=== PATIENT | female | born 1930 | race Caucasian/White ===

== ENCOUNTER 2020-12-23 17:55 | Emergency (ER) | payer OTHER ==
[~2020-12-23] VITALS: Ht 152.4 cm; Wt 52.2 kg
--- NOTE | 2020-12-23 18:06 | NUR ---
PT IS IN ROOM #1A. DR ASH EVALUATED THE PT.
[2020-12-23] MEDS ORDERED: ACETAMINOPHEN 325 MG TABLET PO ONE (18:30)
[2020-12-23] MEDS ORDERED: ACETAMINOPHEN 325 MG TABLET ONE (18:38)
[2020-12-23] MEDS ORDERED: MONT10TA22 PO (19:15)
[2020-12-23] MEDS ORDERED: LORA10TA7 PO (19:15)
[2020-12-23] MEDS ORDERED: CHOL10005 PO (19:15)
[2020-12-23] MEDS ORDERED: FLUT1DIS29 INH (19:15)
[2020-12-23] MEDS ORDERED: CALC430T PO (19:15)
[2020-12-23] MEDS ORDERED: CITA20TA16 PO (19:15)
[2020-12-23] MEDS ORDERED: BUSP5TAB3 PO (19:15)
[2020-12-23] MEDS ORDERED: ACET-2154 PO (19:28)
--- NOTE | 2020-12-23 19:38 | NUR ---
Called [facility] for transportation of patient to home. Dispatcher Иван states a BLS unit will be arriving in 30-40 minutes to forklift picker the patient.
--- NOTE | 2020-12-23 19:50 | NUR ---
[facility] BLS unit 220 arrived to grape picker the patient. Report given, discharge paperwork given, patient soon to be transported.
[2020-12-23 19:52] VITALS: BP 132/56
--- NOTE | 2020-12-23 19:58 | NUR ---
Patient discharged to home in stable condition via [facility] BLS unit 220. Written and verbal after care instructions given to ambulance crew. Ambulance crew verbalizes understanding of instructions. Stressed follow up or return to ER for worsening s/s. Patient transported via gurney to home, V/S stable, received paper Rx, received CT scan results, and left with all personal belongings to home.
== END 2020-12-23 20:01 ==
LOC: ER 18:01
DX: S00.03XA Contusion of scalp, initial encounter (principal); W01.0XXA Fall on same level from slipping, tripping and stumbling without subsequent striking against object, initial encounter; Y92.099 Unspecified place in other non-institutional residence as the place of occurrence of the external cause; I10 Essential (primary) hypertension; F03.90 Unspecified dementia, unspecified severity, without behavioral disturbance, psychotic disturbance, mood disturbance, and anxiety; Z82.49 Family history of ischemic heart disease and other diseases of the circulatory system; M50.30 Other cervical disc degeneration, unspecified cervical region
CPT/HCPCS: 70450; 72125; A4663

== ENCOUNTER 2021-01-03 11:38 | Emergency (ER) | payer OTHER ==
[~2021-01-03] VITALS: Ht 152.4 cm; Wt 68.0 kg
[~2021-01-03 11:38] MED LIST: ACET-2154 PO; BUSP5TAB3 PO; CALC430T PO; CHOL10005 PO; CITA20TA16 PO; FLUT1DIS29 INH; LORA10TA7 PO; MONT10TA22 PO
--- NOTE | 2021-01-03 11:49 | NUR ---
PT IS IN ROOM #2A. DR ORGERS EVALUATED THE PT.
[2021-01-03 12:35] LABS: HEMATOCRIT 41.1 % (31.2-41.9); MEAN CORPUSCULAR HEMOGLOBIN 31.3 uug (24.7-32.8); MEAN CORPUSCULAR VOLUME 94.1 fL (75.5-95.3); PLATELET COUNT (AUTO) 199 K/uL (179-408)
[2021-01-03 12:59] LABS: MAGNESIUM 2.1 mg/dL (1.8-2.4); PHOSPHOROUS 3.1 mg/dL (2.5-4.9)
[2021-01-03 13:01] LABS: THYROID STIMULATING HORMONE 2.778 mIU/mL (0.358-3.740)
[2021-01-03 13:07] LABS: *BILIRUBIN,URIN NEGATIVE (NEGATIVE); *BLOOD, URINE NEGATIVE (NEGATIVE); *CLARITY,URINE CLEAR (CLEAR); *COLOR,URINE YELLOW (YELLOW); *KETONES,URINE NEGATIVE (NEGATIVE); *UROBILINOGEN,URINE 0.2 E.U./dl (NORMAL); LEUKOCYTE ESTERASE ,URINE TRACE (NEGATIVE); NITRITE, URINE NEGATIVE (NEGATIVE); PH,URINE 5.5 (5.0-8.0); UGLUCOSE NEGATIVE (NEGATIVE)
[2021-01-03 13:09] LABS: CREATININE 0.8 mg/dL (0.6-1.3); POTASSIUM 3.9 mmol/L (3.5-5.1)
[2021-01-03 13:15] LABS: BILIRUBIN,DIRECT 0.1 mg/dL (0.0-0.2); BILIRUBIN,TOTAL 0.3 mg/dL (0.2-1.0)
[2021-01-03] MEDS ORDERED: CEFP200T14 PO (15:11)
[2021-01-03 15:29] LABS: BACTERIA,URINE NONE SEEN /HPF (NONE SEEN); RBC,URINE 0-3 /HPF (0-3); SQUAMOUS EPITHELIAL CELL,UR FEW /HPF (NONE SEEN); URINE AMORPHOUS URATE FEW /HPF
[2021-01-03 15:40] VITALS: BP 128/69
--- NOTE | 2021-01-03 15:40 | NUR ---
PT WAS D/C'd TO HOME. D/C INSTRUCTIONS GIVEN TO THE PT BY DR ROGERS.
== END 2021-01-03 15:41 ==
LOC: ER 11:38
DX: S09.90XA Unspecified injury of head, initial encounter (principal); W19.XXXA Unspecified fall, initial encounter; Y92.099 Unspecified place in other non-institutional residence as the place of occurrence of the external cause; N39.0 Urinary tract infection, site not specified; R53.1 Weakness; F03.90 Unspecified dementia, unspecified severity, without behavioral disturbance, psychotic disturbance, mood disturbance, and anxiety; J45.909 Unspecified asthma, uncomplicated; E78.5 Hyperlipidemia, unspecified; Z79.899 Other long term (current) drug therapy; Z88.8 Allergy status to other drugs, medicaments and biological substances; I10 Essential (primary) hypertension; M25.522 Pain in left elbow; Z20.822 Contact with and (suspected) exposure to COVID-19
CPT/HCPCS: 36415; 70030-TC; 70450; 71045; 72125; 73080; 83735; 84100; 84443; 85025; 87077; 87086; 93005; A4663; C1758

== ENCOUNTER 2021-02-23 16:05 | Inpatient (IN) | payer OTHER ==
[~2021-02-23] VITALS: Ht 157.5 cm; Wt 60.9 kg
[~2021-02-23 16:05] MED LIST changes: +CEFP200T14 PO
[2021-02-23] MEDS ORDERED: LIDOCAINE 1%-EPI 1:100,000 20 ML VIAL IJ ONE (17:15)
[2021-02-23] MEDS ORDERED: TDAP DIPH,PERTUSS,TET VAC/PF 0.5 ML DISP.SYRIN IM ONE ×2 (17:15→19:29)
[2021-02-23] MEDS ORDERED: NEOMY/BACITRA/POLYMYXIN B OINT UD PACKET TP ONE ×2 (17:53→18:00)
[2021-02-23 18:23] LABS: HEMATOCRIT 41.8 % (31.2-41.9); MEAN CORPUSCULAR VOLUME 90.3 fL (75.5-95.3); PLATELET COUNT (AUTO) 205 K/uL (179-408)
[2021-02-23 18:26] LABS: CARBON DIOXIDE 27 mmol/L (21-32); CHLORIDE 105 mmol/L (98-107); CREATININE 0.9 mg/dL (0.6-1.3); GLUCOSE 104 mg/dL (74-106); POTASSIUM 4.1 mmol/L (3.5-5.1); UREA NITROGEN, BLOOD 27 mg/dL (7-18)
[2021-02-23 18:30] LABS: ETHANOL < 3 MG/DL (0-0)
[2021-02-23 18:32] LABS: ALANINE AMINOTRANSFERASE 17 U/L (14-59); ALKALINE PHOSPHATASE 70 U/L (50-136); ASPARTATE AMINOTRANSFERASE 10 U/L (15-37); BILIRUBIN,DIRECT 0.1 mg/dL (0.0-0.2); BILIRUBIN,TOTAL 0.2 mg/dL (0.2-1.0); TOTAL PROTEIN, SERUM 7.5 g/dL (6.4-8.2)
[2021-02-23 18:33] LABS: ACETAMINOPHEN < 2.0 ug/mL (10-30)
[2021-02-23 18:39] LABS: THYROID STIMULATING HORMONE 3.213 mIU/mL (0.358-3.740)
[2021-02-23 20:16] LABS: *BILIRUBIN,URIN NEGATIVE (NEGATIVE); *CLARITY,URINE CLEAR (CLEAR); *COLOR,URINE LIGHT YELLOW (YELLOW); *KETONES,URINE NEGATIVE (NEGATIVE); *UROBILINOGEN,URINE 0.2 E.U./dl (NORMAL); LEUKOCYTE ESTERASE ,URINE NEGATIVE (NEGATIVE); NITRITE, URINE NEGATIVE (NEGATIVE); UGLUCOSE NEGATIVE (NEGATIVE)
[2021-02-23 20:31] LABS: *BLOOD, URINE TRACE INTACT (NEGATIVE); RBC,URINE 0-3 /HPF (0-3); WBC,URINE 0-3 /HPF (0-3)
[2021-02-23 20:32] LABS: BACTERIA,URINE NONE SEEN /HPF (NONE SEEN)
[2021-02-23] MEDS ORDERED: ACETAMINOPHEN 325 MG TABLET PO PRN (21:15)
[2021-02-23] MEDS ORDERED: ONDANSETRON 4 MG/2 ML VIAL IV PRN (21:15)
[2021-02-23] MEDS ORDERED: Z GUARD REMEDY PASTE 57 GM TUBE TOP PRN (21:15)
[2021-02-23 23:08] VITALS: BP 122/60
[2021-02-24 04:42] VITALS: BP 116/46
[2021-02-24 07:10] LABS: HEMATOCRIT 38.8 % (31.2-41.9); PLATELET COUNT (AUTO) 188 K/uL (179-408)
[2021-02-24 08:13] LABS: CREATININE 0.9 mg/dL (0.6-1.3); MAGNESIUM 2.1 mg/dL (1.8-2.4); PHOSPHOROUS 3.5 mg/dL (2.5-4.9); POTASSIUM 3.8 mmol/L (3.5-5.1)
[2021-02-24 11:25] VITALS: BP 106/42
[2021-02-24 15:42] VITALS: BP 121/52
[2021-02-24] MEDS ORDERED: FLUTICASONE/SALMETEROL 500/50 EACH DISK.W.DEV INH SCH (17:00)
[2021-02-24 20:00] VITALS: BP 106/45
[2021-02-24] MEDS: CITALOPRAM 20 MG TABLET PO SCH (20:45)
[2021-02-24] MEDS: OMEGA-3 FATTY ACIDS/FISH OIL CAPSULE PO SCH (20:45)
[2021-02-24] MEDS: busPIRone 5 MG TABLET PO SCH (20:45)
[2021-02-25] VITALS: BP 104/42
[2021-02-25 04:00] VITALS: BP 108/45
[2021-02-25] MEDS: CHOLECALCIFEROL 1,000 UNIT TABLET PO SCH (08:47)
[2021-02-25] MEDS: LORATADINE 10 MG TABLET PO SCH (08:48)
[2021-02-25] MEDS: OMEGA-3 FATTY ACIDS/FISH OIL CAPSULE PO SCH ×2 (08:48→20:02)
[2021-02-25] MEDS: CALCIUM CARBONATE 500 MG TAB.CHEW PO SCH (08:48)
[2021-02-25] MEDS: FLUTICASONE/VILANTEROL 1 EACH BLST.W.DEV INH SCH (08:53)
[2021-02-25] MEDS ORDERED: CALCIUM CARBONATE 500 MG PO SCH (09:00)
[2021-02-25] MEDS ORDERED: Medication Not On Formulary EA (Cholecalciferol (Vitamin D3) (Vitamin D3) 1 CAP) PO SCH (09:00)
[2021-02-25 11:41] VITALS: BP 100/41
[2021-02-25 15:47] VITALS: BP 109/41
[2021-02-25] MEDS ORDERED: MONTELUKAST SODIUM 10 MG TABLET PO SCH (18:00)
[2021-02-25 20:00] VITALS: BP 117/63
[2021-02-25] MEDS: busPIRone 5 MG TABLET PO SCH (20:02)
[2021-02-25] MEDS: CITALOPRAM 20 MG TABLET PO SCH (20:02)
[2021-02-26 04:00] VITALS: BP 108/50
[2021-02-26] MEDS: LORATADINE 10 MG TABLET PO SCH (08:29)
[2021-02-26] MEDS: FLUTICASONE/VILANTEROL 1 EACH BLST.W.DEV INH SCH (08:29)
[2021-02-26] MEDS: CALCIUM CARBONATE 500 MG TAB.CHEW PO SCH (08:29)
[2021-02-26] MEDS: OMEGA-3 FATTY ACIDS/FISH OIL CAPSULE PO SCH (08:29)
[2021-02-26] MEDS: CHOLECALCIFEROL 1,000 UNIT TABLET PO SCH (08:29)
[2021-02-26 12:00] VITALS: BP 98/37
== END 2021-02-26 14:57 | DRG 605 ==
LOC: ER 16:10 → TELE3 22:30 → MEDSURG3 02-25 09:02
PROVIDERS: ADMIT Internal Medicine; ATTEND Internal Medicine
PROC: 0HQ1XZZ Repair Face Skin, External Approach (ICD-10-PCS; principal; 2021-02-23)
DX: S01.81XA Laceration without foreign body of other part of head, initial encounter (principal); E86.0 Dehydration; W18.30XA Fall on same level, unspecified, initial encounter; E78.5 Hyperlipidemia, unspecified; F03.90 Unspecified dementia, unspecified severity, without behavioral disturbance, psychotic disturbance, mood disturbance, and anxiety; I10 Essential (primary) hypertension; J45.909 Unspecified asthma, uncomplicated; Z20.822 Contact with and (suspected) exposure to COVID-19; M50.30 Other cervical disc degeneration, unspecified cervical region; Z91.81 History of falling; R73.03 Prediabetes; Y92.89 Other specified places as the place of occurrence of the external cause; Z88.8 Allergy status to other drugs, medicaments and biological substances
CPT/HCPCS: 36415; 70030-TC; 70450; 71045; 72125; 83605; 83735; 84100; 84443; 85025; 85730; 87040; 87086; 90715; 93005; 93307; 93880; 97161; A4663; G0378; G0480

== ENCOUNTER 2021-03-22 19:43 | Emergency (ER) | payer OTHER ==
[~2021-03-22] VITALS: Ht 157.5 cm; Wt 60.8 kg
[~2021-03-22 19:43] MED LIST changes: -CEFP200T14 PO
[2021-03-22] MEDS ORDERED: LIDOCAINE 1%-EPI 1:100,000 20 ML VIAL IJ ONE (20:00)
--- NOTE | 2021-03-22 20:16 | NUR ---
Pt to CT
--- NOTE | 2021-03-22 22:46 | NUR ---
called [facility] for transportation, 2 hour eta
--- NOTE | 2021-03-23 01:36 | NUR ---
[id number] here, transported pt to [facility] in stable condition. Discharge backwork handed to complex commercial litigation paralegal.
[2021-03-23 01:38] VITALS: BP 119/77
== END 2021-03-23 01:39 ==
LOC: ER 19:45
DX: S01.81XA Laceration without foreign body of other part of head, initial encounter (principal); W18.30XA Fall on same level, unspecified, initial encounter; Z91.81 History of falling; Y92.099 Unspecified place in other non-institutional residence as the place of occurrence of the external cause; S01.81XD Laceration without foreign body of other part of head, subsequent encounter; W19.XXXD Unspecified fall, subsequent encounter; Z82.49 Family history of ischemic heart disease and other diseases of the circulatory system; Z88.8 Allergy status to other drugs, medicaments and biological substances; F03.90 Unspecified dementia, unspecified severity, without behavioral disturbance, psychotic disturbance, mood disturbance, and anxiety; J45.909 Unspecified asthma, uncomplicated; E78.5 Hyperlipidemia, unspecified; Z79.899 Other long term (current) drug therapy; M50.30 Other cervical disc degeneration, unspecified cervical region
CPT/HCPCS: 70450; 72125; A4217; A4663